=== PATIENT | female | born 1930 | race Caucasian/White ===

== ENCOUNTER 2016-10-18 02:19 | Inpatient (IN) ==
[2016-10-13 09:14] LABS: MANUAL DIFF NEEDED? NO; URINE MICRO REVIEW NEEDED? NO; URINE SOURCE CLEAN CATCH
[2016-10-13 09:19] LABS: BASO% 0.2 % (0.0-0.8); BILIRUBIN URINE NEGATIVE (NEGATIVE); BLOOD URINE NEGATIVE (NEGATIVE); COLOR YELLOW; EOS# 0.34 X1000 (0.0-0.7); EOS% 3.9 % (0.0-10.0); GLUCOSE URINE NEGATIVE (NEGATIVE); HEMATOCRIT 43.5 % (37.0-47.0); HEMOGLOBIN 14.8 g/dL (12.0-16.0); IMM GRAN# 0.03 X1000 (0.0-0.04); IMM GRAN% 0.3 % (0.0-0.5); LEUKOCYTES URINE LARGE (NEGATIVE); LYMPH# 1.38 X1000 (1.2-3.4); LYMPH% 15.6 % (20.5-51.1); MCH 30.8 PG (27-31); MCV 90.6 FL (81-99); MONO# 1.19 X1000 (0.11-0.59); MONO% 13.5 % (1.7-9.3); MPV 10.9 FL (7.4-10.4); NEUT% 66.5 % (42.2-75.2); NITRITE URINE NEGATIVE (NEGATIVE); PH URINE 5.5; PLT 248 X1000 (130-400); PROTEIN URINE NEGATIVE (NEGATIVE); SP GRAVITY URINE 1.005; TURBIDITY URINE HAZY (CLEAR); UROBILINOGEN URINE NORMAL (NORMAL)
[2016-10-13 09:21] LABS: UR EPITHELIAL CELLS <10 /HPF (<10); URINE BACTERIA NEGATIVE /HPF; URINE RBC <10 /HPF (<10); URINE WBC TNTC /HPF (<10)
--- NOTE | 2016-10-13 09:24 | EKG Report ---
Test Performed on : 10/13/2016 09:02:47 AM Test Reason : pat Blood Pressure : / mmHG Vent. Rate : 068 BPM Atrial Rate : 068 BPM P-R Int : 156 ms QRS Dur : 084 ms QT Int : 388 ms P-R-T Axes : 022 011 037 degrees QTc Int : 412 ms Normal sinus rhythm. Normal ECG No previous ECGs available Confirmed by Alyssia BATISTA, Todd Ramirez ([id number]) on 10/13/2016 6:41:51 PM
[2016-10-13 09:26] LABS: PROTIME 10.5 Seconds (9.2-11.7); PTT 26.4 Seconds (22.0-36.0)
[2016-10-13 09:40] LABS: AGAP 13; BUN 16 mg/dL (8-22); CALCIUM 10.7 mg/dL (8.8-10.2); CHLORIDE 96 mmol/L (98-107); COSMO 280; POTASSIUM 3.6 mmol/L (3.5-5.1); SODIUM 140 mmol/L (136-145); TCO2 31 mmol/L (25-35)
[2016-10-18] MEDS ORDERED: REGLAN ONE (08:39)
[2016-10-18] MEDS ORDERED: COLACE ONE (08:39)
[2016-10-18] MEDS ORDERED: LR 1,000 ML ONE ×2 (08:39→12:15)
[2016-10-18] MEDS ORDERED: LYRICA ONE (08:39)
[2016-10-18] MEDS ORDERED: CELEBREX ONE (08:39)
[2016-10-18] MEDS ORDERED: PEPCID ONE (08:39)
[2016-10-18] MEDS ORDERED: KEFZOL 1 GM/D5W 1 GM/50 ML IVPB ONE (08:40)
[2016-10-18] MEDS ORDERED: TORADOL ONE (09:50)
[2016-10-18] MEDS ORDERED: VANCOMYCIN ONE (09:50)
[2016-10-18] MEDS ORDERED: DURAMORPH ONE (09:50)
[2016-10-18] MEDS ORDERED: EXPAREL 1.3% ONE (09:51)
[2016-10-18] MEDS ORDERED: SODIUM CHLORIDE 0.9% ONE (09:51)
[2016-10-18] MEDS ORDERED: MARCAINE 0.25% PF/EPI 1:200,000 ONE (09:51)
[2016-10-18] MEDS ORDERED: NEOSPORIN G.U. IRRIGANT ONE (09:51)
[2016-10-18] MEDS ORDERED: CYKLOKAPRON 1,000 MG/NS 1,000 MG/100 ML IVPB ONE ×2 (09:51→09:52)
[2016-10-18] MEDS ORDERED: CLAVE SECONDARY SET 11953 ONE (09:51)
--- NOTE | 2016-10-18 10:16 | HISTORY AND PHYSICAL ---
CHIEF COMPLAINT: Left knee pain. HISTORY OF PRESENT ILLNESS: Ms. Robles is an 86-year-old, white female who has experienced progressive left knee pain for many years. She reports that her pain is worse with weightbearing activities and activity. Radiographic evaluation of the knee reveals findings consistent with advanced degenerative joint disease. She previously underwent a right total knee arthroplasty. Despite conservative therapy, the left knee still is recalcitrant to manage and she has a reduction in her ability to perform her normal daily activities. She will be admitted at this time for a left total knee arthroplasty. PRIMARY CARE PHYSICIAN: Dr. Ziyad Florian. ALLERGIES: Latex. PAST MEDICAL HISTORY: 1. Osteoarthritis. 2. Gastroesophageal reflux disease. 3. Hypertension. 4. History of breast cancer. 5. Glaucoma. PAST SURGICAL HISTORY: 1. Right total knee arthroplasty. 2. Right mastectomy. 3. Hysterectomy. SOCIAL HISTORY: The patient is a . She is a nonsmoker. She has a supportive family. CURRENT MEDICATIONS: 1. Prilosec 40 by mouth daily. 2. Xalatan 0.005% 1 drop to both eyes in the evening. 3. Celebrex 200 mg daily. 4. Anastrozole 1 mg by mouth daily. 5. Timoptic 0.5% 1 drop to both eyes in the morning. 6. Lisinopril/hydrochlorothiazide 20/12.5 mg 1 tablet daily. 7. Ultram 50 mg up to 4 times a day as necessary. REVIEW OF SYSTEMS: HEENT: No known history of stroke or cerebrovascular disease. She is managed for glaucoma. Cardiac: She is treated for hypertension. No history of coronary artery disease or valvular heart disease. No chest pain, pressure, or other anginal equivalents. Pulmonary: The patient is a nonsmoker with no lung disease. Gastrointestinal: Good appetite. No weight loss or weight gain. Denies nausea, vomiting, diarrhea, or constipation. Genitourinary: Denies kidney or bladder infection or dysfunction. Neurological: No extremity pain, weakness, or paresthesia. Musculoskeletal: Left knee osteoarthritis. She previously underwent a right total knee arthroplasty. Other: She has a history of breast cancer, status post right mastectomy. PHYSICAL EXAMINATION: GENERAL: The patient is resting comfortably in bed. She is articulate and able answer all questions fully. HEENT: Head is normocephalic and atraumatic. Pupils are equal, round, react to light. Nares are patent. Throat without exudate. NECK: Supple. HEART: Regular rate and rhythm. No murmurs, gallops, or rubs. LUNGS: Clear to auscultation bilaterally. ABDOMEN: Round. Bowel sounds are present. It is nontender. GENITOURINARY: Not examined. NEUROLOGICAL: She discerns soft touch in the affected extremity. Motor strength is grossly intact. MUSCULOSKELETAL: Left knee: No deformity, edema, or ecchymosis. She has a good peripheral pulse. IMPRESSION: Degenerative joint disease of the left knee. PLAN: Left total knee arthroplasty. The risks and benefits of surgery were explained to the patient including the risks of anesthesia, , bleeding, infection, damage to tendons, ligaments, nerves, and blood vessels, the possibility of blood clots and other imponderables were discussed, and she wishes to proceed with operative management at this time. Dictated by SUNNI Lawson for Yusuf Goss MD cc: SUNNI Lawson MD
[2016-10-18 11:00] LABS: URINE MICRO REVIEW NEEDED? NO; URINE SOURCE CATH
[2016-10-18 11:03] LABS: BILIRUBIN URINE NEGATIVE (NEGATIVE); BLOOD URINE NEGATIVE (NEGATIVE); COLOR YELLOW; GLUCOSE URINE NEGATIVE (NEGATIVE); LEUKOCYTES URINE MODERATE (NEGATIVE); NITRITE URINE NEGATIVE (NEGATIVE); PH URINE 5.5; PROTEIN URINE NEGATIVE (NEGATIVE); SP GRAVITY URINE 1.016; TURBIDITY URINE CLEAR (CLEAR); UROBILINOGEN URINE NORMAL (NORMAL)
[2016-10-18 11:05] LABS: UR EPITHELIAL CELLS <10 /HPF (<10); URINE BACTERIA NEGATIVE /HPF; URINE RBC <10 /HPF (<10); URINE WBC TNTC /HPF (<10)
[2016-10-18] MEDS ORDERED: NS 1,000 ML ONE (12:02)
[2016-10-18] MEDS ORDERED: DIPRIVAN 1% ONE (12:04)
[2016-10-18] MEDS ORDERED: FENTANYL ONE ×2 (12:04→12:05)
[2016-10-18] MEDS ORDERED: SODIUM CHLORIDE 0.9% 20 ML ONE (12:15)
[2016-10-18] MEDS ORDERED: OFIRMEV 1000 MG/ISOTONIC SOLN 1,000 MG/100 ML BOTTLE ONE (12:15)
[2016-10-18] MEDS ORDERED: DECADRON ONE (12:15)
[2016-10-18] MEDS ORDERED: EPHEDRINE ONE (12:15)
[2016-10-18] MEDS ORDERED: NEO-SYNEPHRINE ONE (12:15)
[2016-10-18] MEDS ORDERED: ZOFRAN ONE (12:15)
[2016-10-18] MEDS ORDERED: XYLOCAINE-MPF 2% ONE (12:15)
[2016-10-18] MEDS ORDERED: VERSED ONE ×2 (13:05→16:19)
[2016-10-18] MEDS: NS 1,000 ML IV SCH (13:30)
--- NOTE | 2016-10-18 16:09 | OPERATIVE NOTE ---
PROCEDURE DATE: 10/18/2016 PREOPERATIVE DIAGNOSIS: Degenerative joint disease, left knee. POSTOPERATIVE DIAGNOSIS: Degenerative joint disease, left knee. PROCEDURE: Left total knee replacement. SURGEON: Sharon Goss MD BASTING CLEANER: SUNNI Lawson ANESTHESIA: Spinal. COMPLICATION: None. PROCEDURE IN DETAIL: An 86-year-old female presents for left knee replacement. Risks, benefits, and no guarantees were discussed, and she is willing to proceed. She was taken to the operating room and satisfactory anesthesia obtained. The left knee was prepped and draped in usual sterile fashion. A time-out was taken to confirm operative site, procedure, and patient. The leg was wrapped with an Esmarch, tourniquet inflated 350 mmHg. A midline incision was made, followed by a quad tendon sparing arthrotomy. The patella was everted and resurfaced with freehand technique. The knee was flexed. An intramedullary hole made in the distal femur and the distal femoral cutting block secured to the distal femur. Distal femoral resection was made and the femur sized to a DePuy Attune size 4 femoral component. The 4 in 1 block was secured and the anterior, posterior, and chamfer cuts sequentially made. The notch was then created for posterior stabilized design using provided notch guide. The femur was reflected posteriorly and any osteophytes removed with a rongeur. A PCL retractor was placed behind the tibia to protect the neurovascular bundle. The tibial cutting block was secured and the tibial resection made. Any remaining osteophytes were debrided about the tibia. Flexion and extension gap was no be roughly equal at roughly 10-12 mm. The tibia was sized to a size 4 tibial trial tray. Trial reduction was performed with trial implants with good stability with a size 4 rotating platform, 12 mm thick tibial poly. The trial components were removed and the bony surfaces thoroughly irrigated with pulsatile lavage. Cement with a gram of vancomycin was then utilized to cement a DePuy Attune size 4 rotating platform tibial tray, a size 4 cruciate stabilized left femoral component, and a 35 medialized dome patella. While the cement cured, the excess cement was removed with a Valencia elevator and the joint capsule injected with Exparel for pain management. A Hemovac drain was placed. Any excess cement was removed with an osteotome. A 12 mm thick size 4 rotating platform posterior stabilized poly was placed in the tibial tray and the knee reduced. Final range of motion was assessed with good soft tissue stability and midline patellar tracking from 0-120 degrees of motion. The knee was then irrigated copiously with irrigant and closed over the drain with #1 Vicryl in the arthrotomy, 2-0 Vicryl in the subcutaneous, and skin christian on the skin edges. Sterile dressings completed the closure and the patient was recovered from anesthesia and transferred to the recovery room in stable condition. No intraoperative complications were noted. Instrument count and sponge count was correct at the time of closure. cc: Yusuf Goss MD
--- NOTE | 2016-10-18 16:48 | PROGRESS NOTE ---
DATE: 10/18/2016 Ms. Robles is awake. She is sitting up in bed. The dressing on her knee is dry and intact. She is able to move her feet. She is neurologically intact. Vital signs are stable. She is afebrile. Currently patient is stable. Dictated by MARCELLUS Cullen for Yusuf Goss MD cc: MARCELLUS Cullen MD
[2016-10-18] MEDS: ULTRAM PO SCH ×4 (18:00→21:27)
[2016-10-18] MEDS: KEFZOL 1 GM/D5W 1 GM/50 ML IVPB IV SCH (18:24)
[2016-10-18] MEDS: ARIMIDEX PO SCH (19:41)
[2016-10-18] MEDS: TIMOPTIC 0.5% OPH SOLUTION BOTH EYES SCH (19:44)
[2016-10-18] MEDS: COLACE PO SCH ×2 (19:45→21:26)
[2016-10-18] MEDS: PRINZIDE 20/12.5MG PO SCH (19:45)
[2016-10-18] MEDS: CELEBREX PO SCH (19:45)
--- NOTE | 2016-10-18 21:14 | Diag Imaging Result Document ---
PROCEDURE NAME: KNEE 1-2 VIEWS-LEFT - 10/18/2016 PORTABLE LEFT KNEE, 2 VIEWS: There has been orthopedic replacement of the left knee. Good alignment to the femoral and tibial components. There are anterior skin christian and a superior surgical drain. No fracture. No dislocation. IMPRESSION: Good alignment following orthopedic replacement of the left knee.
[2016-10-18] MEDS: PERIDEX MT SCH (21:26)
[2016-10-18] MEDS: XALATAN 0.005% OPH SOLN BOTH EYES SCH (21:26)
[2016-10-18] MEDS: NORCO-10 PO PRN (21:47)
[2016-10-18] MEDS: MORPHINE IV PRN (23:06)
[2016-10-19] MEDS: KEFZOL 1 GM/D5W 1 GM/50 ML IVPB IV SCH (01:13)
[2016-10-19] MEDS: NS 1,000 ML IV SCH ×2 (01:14→21:50)
[2016-10-19] MEDS: NORCO-10 PO PRN (05:31)
[2016-10-19] MEDS: XARELTO PO SCH (05:31)
[2016-10-19] MEDS: PRILOSEC PO SCH ×2 (05:31→06:37)
[2016-10-19 05:59] LABS: HEMATOCRIT 33.4 % (37.0-47.0); HEMOGLOBIN 11.3 g/dL (12.0-16.0)
[2016-10-19 06:24] LABS: AGAP 11; BUN 13 mg/dL (8-22); CALCIUM 7.8 mg/dL (8.8-10.2); CHLORIDE 109 mmol/L (98-107); COSMO 287; POTASSIUM 4.4 mmol/L (3.5-5.1); SODIUM 144 mmol/L (136-145); TCO2 24 mmol/L (25-35)
[2016-10-19] MEDS: COLACE PO SCH ×2 (10:54→21:51)
[2016-10-19] MEDS: PRINZIDE 20/12.5MG PO SCH (10:54)
[2016-10-19] MEDS: CELEBREX PO SCH (10:54)
[2016-10-19] MEDS: ULTRAM PO SCH ×4 (10:54→21:51)
[2016-10-19] MEDS: TIMOPTIC 0.5% OPH SOLUTION BOTH EYES SCH (10:55)
[2016-10-19] MEDS: PERIDEX MT SCH ×2 (10:55→21:52)
[2016-10-19] MEDS: ARIMIDEX PO SCH (10:56)
[2016-10-19] MEDS: MORPHINE IV PRN (21:50)
[2016-10-19] MEDS: XALATAN 0.005% OPH SOLN BOTH EYES SCH (21:54)
[2016-10-20] MEDS: MORPHINE IV PRN ×2 (02:12→05:44)
[2016-10-20] MEDS: NS 1,000 ML IV SCH (02:25)
[2016-10-20] MEDS: NORCO-10 PO PRN (04:19)
[2016-10-20] MEDS: PRILOSEC PO SCH ×2 (05:44→07:47)
[2016-10-20] MEDS: XARELTO PO SCH (05:44)
[2016-10-20 06:22] LABS: HEMATOCRIT 31.9 % (37.0-47.0); HEMOGLOBIN 10.7 g/dL (12.0-16.0)
[2016-10-20] MEDS: COLACE PO SCH (09:38)
[2016-10-20] MEDS: PERIDEX MT SCH (09:38)
[2016-10-20] MEDS: TIMOPTIC 0.5% OPH SOLUTION BOTH EYES SCH (09:38)
[2016-10-20] MEDS: ARIMIDEX PO SCH (09:39)
[2016-10-20] MEDS: CELEBREX PO SCH (09:39)
[2016-10-20] MEDS: PRINZIDE 20/12.5MG PO SCH (09:39)
[2016-10-20] MEDS: ULTRAM PO SCH (09:39)
[2016-10-20 11:45] VITALS: BP 159/57
--- NOTE | 2016-10-21 10:50 | DISCHARGE SUMMARY ---
ADMISSION DATE: 10/18/2016 DISCHARGE DATE: 10/20/2016 ADMITTING DIAGNOSIS: Degenerative joint disease, left knee. ADDITIONAL DIAGNOSES: 1. Gastroesophageal reflux disease. 2. Hypertension. 3. Glaucoma. DISCHARGE DIAGNOSES: 1. Degenerative joint disease of left knee. 2. Gastroesophageal reflux disease. 3. Hypertension. 4. Glaucoma. ADMITTING HISTORY AND HOSPITAL COURSE: Ms. Robles is an 86-year-old white female with a history of progressive left knee pain. She was admitted to the hospital for a left total knee arthroplasty. After her surgery, she remained afebrile. Her vital signs remained stable. Currently, her hematocrit is 31.9 and today she ambulated 150 feet with a front wheel walker. We plan to discharge her home with home health coming out to work with her with physical therapy. DISCHARGE MEDICATIONS: Ultram 50 mg p.o. 4 times a day. Lisinopril/hydrochlorothiazide 20/12.5 mg tablet 1 p.o. daily. Timolol 0.5% ophthalmologic solution 1 drop both eyes every a.m. Latanoprost 0.005% ophthalmologic solution 1 drop both eyes at bedtime. Anastrozole 1 mg p.o. daily. Prilosec 40 mg p.o. daily. [place] 10 one to 2 p.o. q.4-6 hours p.r.n. for pain. Xarelto 10 mg p.o. daily for 2 weeks. DISCHARGE INSTRUCTIONS: Ms. Robles is to discharge home, where she will begin a home physical therapy regimen today or tomorrow. I discussed with her that she is going home with pain medication and an anticoagulant, which is Xarelto. I discussed with her that if she has any worsening pain or worsening symptoms, or any signs of infection such as fever or discharge from the incision site, to call us immediately. She will need to follow with Dr. Goss in about 10 days for followup appointment and have her christian removed. Dictated by MARCELLUS Cullen for Yusuf Goss MD cc: MARCELLUS Cullen MD
== END 2016-10-20 14:21 | disposition home health service (06) ==
LOC: SURHOLD 02:19 → 4N 11:15
PROVIDERS: ADMIT Orthopaedic Surgery Adult Reconstructive Orthopaedic Surgery; ATTEND Orthopaedic Surgery Adult Reconstructive Orthopaedic Surgery